=== PATIENT | male | born 1955 | race Two or more races ===

== ENCOUNTER 2020-11-21 12:04 | Emergency (ER) | payer OTHER ==
[~2020-11-21] VITALS: Ht 175.3 cm; Wt 83.9 kg
[~2020-11-21 12:04] MED LIST: DILT180C68 PO
[2020-11-21 12:59] LABS: Basophils # (auto) 0 10 ^3/uL (0-0.2); Eosinophils # (auto) 0 10 ^3/uL (0-0.8); Hematocrit 41.3 % (41.0-53.0); Hemoglobin 14.4 g/dL (13.5-17.5); Lymphocytes # (auto) 0.7 10 ^3/uL (0.4-5.4); Lymphocytes % (auto) 4.3 % (10.0-50.0); Mean Corpuscular Hemoglobin 30.5 pg (28.0-32.0); Mean Corpuscular Hgb Conc. 34.7 g/dL (32.0-36.0); Mean Corpuscular Volume 87.7 fL (80.0-100.0); Monocytes # (auto) 0.6 10 ^3/uL (0-1.3); Monocytes % (auto) 3.6 % (0.0-12.0); Neutrophils % (auto) 92.1 % (37.0-80.0); Platelet Count (auto) 271 10^3/uL (140-450); Red Blood Cells 4.71 10^6/uL (4.5-5.90); Red Cell Distribution Width 12.9 % (11.8-14.3); White Blood Cell 15.2 10^3/uL (4.4-10.8)
[2020-11-21 13:14] LABS: Chloride 105 mmol/L (98-107); Sodium 134 mmol/L (136-145)
[2020-11-21 13:25] LABS: Alanine Aminotransferase 24 U/L (16-61); Albumin 2.4 g/dL (3.4-5.0); Alkaline Phosphatase 92 U/L (45-117); Anion Gap 9 (5-15); Aspartate Aminotransferase 17 U/L (15-37); BUN/Creatinine Ratio 22.6; Bilirubin, Total 0.6 mg/dL (0.2-1.0); Blood Urea Nitrogen 21 mg/dL (7-18); Calcium 8.3 mg/dL (8.5-10.1); Carbon Dioxide 20 mmol/L (21-32); GFR African American 105 mL/min; GFR Non-African American 87 mL/min; Glucose 234 mg/dL (74-106); Magnesium 2.2 mg/dL (1.6-2.6)
[2020-11-21] MEDS ORDERED: dilTIAZem 120MG ER CAP PO ONE ×2 (15:45→16:15)
[2020-11-21 16:30] VITALS: BP 121/73
== END 2020-11-21 16:55 | disposition home or self-care (01) ==
LOC: ER 12:04 → EDBD 12:04 → ER 16:55
DX: I47.1 Supraventricular tachycardia (principal); E11.9 Type 2 diabetes mellitus without complications
CPT/HCPCS: 36415; 71045; 80053; 83735; 83880; 84484; 85025; 93005

== ENCOUNTER 2024-04-29 11:02 | Inpatient (IN) | payer OTHER ==
[~2024-04-29] VITALS: Ht 172.7 cm; Wt 78.1 kg
[2024-04-29 11:59] LABS: Chloride 102 mmol/L (98-107); Potassium 4.9 mmol/L (3.5-5.1); Sodium 134 mmol/L (136-145)
[2024-04-29 12:00] LABS: Anion Gap 7 (5-15); Calcium 10.3 mg/dL (8.5-10.1); Carbon Dioxide 25 mmol/L (20-30)
[2024-04-29 12:05] LABS: BUN/Creatinine Ratio 16.5 (10.0-20.0); Blood Urea Nitrogen 22 mg/dL (9-23); Glucose 252 mg/dL (74-106)
[2024-04-29 12:07] LABS: Eosinophils # (auto) 0.2 10 ^3/uL (0-0.8); Hemoglobin 18.5 g/dL (13.5-17.5); Monocytes # (auto) 0.5 10 ^3/uL (0-1.3)
[2024-04-29 12:09] LABS: Basophils # (auto) 0.1 10 ^3/uL (0-0.2); Eosinophils % (auto) 2.4 % (0.0-7.0); Hematocrit 53.6 % (41.0-53.0); Lymphocytes # (auto) 2.1 10 ^3/uL (0.4-5.4); Lymphocytes % (auto) 26.5 % (10.0-50.0); Mean Corpuscular Hemoglobin 29.9 pg (28.0-32.0); Mean Corpuscular Hgb Conc. 34.5 g/dL (32.0-36.0); Mean Corpuscular Volume 86.8 fL (80.0-100.0); Monocytes % (auto) 6.9 % (0.0-12.0); Neutrophils % (auto) 63.2 % (37.0-80.0); Nucleated Red Blood Cells % 0.2 %; Red Blood Cells 6.18 10^6/uL (4.5-5.90); White Blood Cell 7.8 10^3/uL (4.4-10.8)
[2024-04-29 12:43] VITALS: PULSE 80; RESP 16; O2SAT 96
[2024-04-29] MEDS: SODIUM CHLORIDE 0.9% 1,000 ML IV ONE (12:54)
[2024-04-29] MEDS ORDERED: ONDANSETRON HCL 4 MG/2 ML VIAL IV PRN (14:45)
[2024-04-29] MEDS ORDERED: MORPHINE SULFATE INJ 2 MG/ml SYRG IV PRN (14:45)
[2024-04-29] MEDS ORDERED: DEXTROSE (50%) 50ML SYRG IV PRN (14:45)
[2024-04-29] MEDS ORDERED: NITROGLYCERIN 0.4 MG SL TAB SL PRN (14:45)
[2024-04-29 15:26] LABS: Triglycerides 194 mg/dL (< 150)
[2024-04-29 15:27] LABS: LDL Cholesterol 72 mg/dL (< 100)
[2024-04-29 15:28] LABS: Cholesterol 131 mg/dL (< 200); HDL Cholesterol 41 mg/dL (40-59)
[2024-04-29 15:52] LABS: INR 1.01 (0.9-1.15); Partial Thromboplastin Time 25.9 SEC (24.5-34.5); Prothrombin Time 10.7 sec (9.3-11.8)
[2024-04-29 16:12] LABS: Urine Bacteria FEW /hpf (None Seen); Urine Blood Negative /uL (Negative); Urine Clarity Clear (Clear); Urine Color Light-Yellow (Yellow); Urine Protein, UAD Negative (Negative); Urine Specific Gravity 1.018 (1.001-1.035); Urine Urobilinogen Normal (Negative); Urine WBC <1 /hpf (0 - 3)
[2024-04-29 16:14] LABS: Amphetamine Screen, Urine Neg (NEGATIVE); Barbiturate Scree,Urine Neg (NEGATIVE); Benzodiazephine Screen, Urine Neg (NEGATIVE); Cannabinoid Screen, Urine Neg (NEGATIVE); Cocaine Screen, Urine Neg (NEGATIVE); Opiate Scree,Urine Neg (NEGATIVE); Phencyclidine Screen, Urine Neg (NEGATIVE)
[2024-04-29] MEDS: InsuLIN REG 1unit/0.01ml Soln (100units/ml) SC SCH (17:00)
[2024-04-29] MEDS: ACCU-CHEK COMFORT CURVE STRIP VI SCH (17:00)
[2024-04-29] MEDS: SODIUM CHLORIDE 0.9% 1,000 ML IV SCH (18:04)
[2024-04-29 19:30] VITALS: PULSE 96; RESP 16; O2SAT 96
[2024-04-29 21:00] VITALS: BP_SYST 131; BP_SYST 134; BP_DIAS 74; BP_DIAS 76; PULSE 78; PULSE 81; RESP 18; TEMP 98.1; O2SAT 95
[2024-04-29 22:17] VITALS: BP 131/76; PULSE 81; RESP 18; TEMP 98.1; O2SAT 95
[2024-04-30] VITALS (8 sets, daily range): BP systolic 116–143; BP diastolic 66–87; PULSE 65–113; RESP 16–20; TEMP 97.5–98.4; O2SAT 91–97
[2024-04-30] MEDS ORDERED: METF-372 PO (01:49)
[2024-04-30] MEDS ORDERED: ROSU10TA64 PO (01:49)
[2024-04-30 06:31] LABS: Basophils # (auto) 0.1 10 ^3/uL (0-0.2); Basophils % (auto) 0.9 % (0.0-2.0); Eosinophils # (auto) 0.2 10 ^3/uL (0-0.8); Eosinophils % (auto) 3.3 % (0.0-7.0); Hematocrit 49.7 % (41.0-53.0); Hemoglobin 16.6 g/dL (13.5-17.5); Lymphocytes # (auto) 2.4 10 ^3/uL (0.4-5.4); Lymphocytes % (auto) 37.5 % (10.0-50.0); Mean Corpuscular Hemoglobin 29.2 pg (28.0-32.0); Mean Corpuscular Hgb Conc. 33.4 g/dL (32.0-36.0); Mean Corpuscular Volume 87.3 fL (80.0-100.0); Monocytes # (auto) 0.5 10 ^3/uL (0-1.3); Monocytes % (auto) 7.6 % (0.0-12.0); Neutrophils # (auto) 3.3 10 ^3/uL (1.6-8.6); Neutrophils % (auto) 50.7 % (37.0-80.0); Nucleated Red Blood Cells % 0.2 %; Red Cell Distribution Width 14.2 % (11.8-14.3); White Blood Cell 6.5 10^3/uL (4.4-10.8)
[2024-04-30 06:48] LABS: Alanine Aminotransferase 22 U/L (7-40); Alkaline Phosphatase 64 U/L (46-116); Anion Gap 8 (5-15); Aspartate Aminotransferase < 8 U/L (13-40); BUN/Creatinine Ratio 18.2 (10.0-20.0); Blood Urea Nitrogen 18 mg/dL (9-23); Calcium 9.1 mg/dL (8.5-10.1); Carbon Dioxide 23 mmol/L (20-30); Chloride 107 mmol/L (98-107); Potassium 3.9 mmol/L (3.5-5.1); Sodium 138 mmol/L (136-145)
[2024-04-30 06:49] LABS: Glucose 146 mg/dL (74-106); Total Protein 5.8 g/dL (5.7-8.2)
[2024-04-30] MEDS: FAMOTIDINE 20 MG TAB PO SCH (09:39)
[2024-04-30] MEDS: ENOXAPARIN SOD 40 MG/0.4 ML SYRINGE SC SCH (09:40)
[2024-05-01] VITALS (8 sets, daily range): BP systolic 108–141; BP diastolic 73–90; PULSE 69–88; RESP 14–18; TEMP 97.6–98.3; O2SAT 93–98
[2024-05-01] MEDS: ADENOSINE 64 MG in GIVE UN-DILUTED 0 ML IV ONE (10:31)
[2024-05-02 04:52] VITALS: BP 108/54; PULSE 94; RESP 16; TEMP 97.6; O2SAT 95
[2024-05-02 08:00] VITALS: PULSE 79
[2024-05-02 08:47] VITALS: BP 103/58; PULSE 89; RESP 22; TEMP 98.1; O2SAT 99
[2024-05-02 12:34] VITALS: BP 106/61; PULSE 93; RESP 20; TEMP 97.8; O2SAT 94
[2024-05-02 15:43] VITALS: TEMP 36.6
== END 2024-05-02 16:40 | disposition home health service (06) | DRG 310 ==
LOC: ER 11:02 → TELE 14:41 → TELE-E-ADS 20:55
PROVIDERS: ADMIT Hospitalist; ATTEND Internal Medicine
DX: I49.5 Sick sinus syndrome (principal); I10 Essential (primary) hypertension; E11.9 Type 2 diabetes mellitus without complications; E78.5 Hyperlipidemia, unspecified; Z83.3 Family history of diabetes mellitus; Z82.49 Family history of ischemic heart disease and other diseases of the circulatory system; Z79.899 Other long term (current) drug therapy; Z79.4 Long term (current) use of insulin
CPT/HCPCS: 36415; 70450; 70551; 78452; 80048; 80053; 80061; 80307; 81001; 82962; 83036; 84484; 85025; 85379; 85610; 85730; 93005; 93017; 93306; 97110; 97116; 97163; 97530; G0378; J0153; J1815

== ENCOUNTER 2024-06-13 01:47 | Inpatient (IN) | payer OTHER ==
[2024-06-13] VITALS (7 sets, daily range): BP systolic 137; BP diastolic 82; PULSE 68–84; RESP 14–19; TEMP 97.7; O2SAT 94–96
[~2024-06-13] VITALS: Ht 180.3 cm; Wt 83.1 kg
[~2024-06-13 01:47] MED LIST changes: +METF-372 PO; +ROSU10TA64 PO
[2024-06-13 02:28] LABS: Basophils # (auto) 0 10 ^3/uL (0-0.2); Basophils % (auto) 0.3 % (0.0-2.0); Eosinophils # (auto) 0.1 10 ^3/uL (0-0.8); Eosinophils % (auto) 1.1 % (0.0-7.0); Hematocrit 50.5 % (41.0-53.0); Hemoglobin 17.2 g/dL (13.5-17.5); Lymphocytes # (auto) 1.9 10 ^3/uL (0.4-5.4); Lymphocytes % (auto) 24.9 % (10.0-50.0); Mean Corpuscular Hemoglobin 30.5 pg (28.0-32.0); Mean Corpuscular Hgb Conc. 34.1 g/dL (32.0-36.0); Mean Corpuscular Volume 89.5 fL (80.0-100.0); Monocytes # (auto) 0.6 10 ^3/uL (0-1.3); Monocytes % (auto) 7.7 % (0.0-12.0); Neutrophils # (auto) 4.9 10 ^3/uL (1.6-8.6); Red Blood Cells 5.65 10^6/uL (4.5-5.90); Red Cell Distribution Width 15.1 % (11.8-14.3); White Blood Cell 7.4 10^3/uL (4.4-10.8)
[2024-06-13 02:38] LABS: Alanine Aminotransferase 23 U/L (7-40); Albumin 4.2 g/dL (3.2-4.8); Alkaline Phosphatase 76 U/L (46-116); Anion Gap 11 (5-15); Aspartate Aminotransferase < 8 U/L (13-40); BUN/Creatinine Ratio 13.7 (10.0-20.0); Bilirubin, Total 0.8 mg/dL (0.2-1.0); Blood Urea Nitrogen 16 mg/dL (9-23); Carbon Dioxide 21 mmol/L (20-30); Chloride 108 mmol/L (98-107); Glucose 162 mg/dL (74-106); Magnesium 1.9 mg/dL (1.6-2.6); Potassium 3.9 mmol/L (3.5-5.1); Sodium 140 mmol/L (136-145)
[2024-06-13 02:39] LABS: Total Protein 6.3 g/dL (5.7-8.2)
[2024-06-13 02:45] LABS: INR 0.91 (0.9-1.15); Partial Thromboplastin Time 27.4 SEC (24.5-34.5); Prothrombin Time 9.7 sec (9.3-11.8)
[2024-06-13] MEDS ORDERED: HYDROcodone-ACET 5/325MG TAB PO PRN (06:00)
[2024-06-13] MEDS ORDERED: NITROGLYCERIN 0.4 MG SL TAB SL PRN (06:00)
[2024-06-13] MEDS ORDERED: ONDANSETRON HCL 4 MG/2 ML VIAL IV PRN (06:00)
[2024-06-13] MEDS ORDERED: DEXTROSE (50%) 50ML SYRG IV PRN (06:00)
[2024-06-13] MEDS ORDERED: MORPHINE SULFATE INJ 2 MG/ml SYRG IV PRN ×2 (06:00)
[2024-06-13] MEDS ORDERED: ACETAMINOPHEN 325 MG TAB PO PRN (06:00)
[2024-06-13] MEDS: ASPirin 81 mg TAB PO ONE (06:03)
[2024-06-13] MEDS: ACCU-CHEK COMFORT CURVE STRIP VI SCH (06:30)
[2024-06-13] MEDS: InsuLIN REG 1unit/0.01ml Soln (100units/ml) SC SCH (06:31)
[2024-06-13] MEDS: SODIUM CHLORIDE 0.9% 1,000 ML IV ONE (07:29)
[2024-06-13] MEDS: ADENOSINE 6 MG/2 ML INJ IV ONE ×2 (07:29→17:29)
[2024-06-13 07:40] LABS: Urine Bacteria None Seen /hpf (None Seen)
[2024-06-13 07:57] LABS: Urine Blood Negative /uL (Negative); Urine Clarity Clear (Clear); Urine Color Light-Yellow (Yellow); Urine Protein, UAD Negative (Negative); Urine Specific Gravity 1.022 (1.001-1.035); Urine Urobilinogen Normal (Negative); Urine WBC <1 /hpf (0 - 3)
[2024-06-13] MEDS: ASPirin 81 mg TAB PO SCH (10:28)
[2024-06-13] MEDS: ATORVASTATIN 20 MG TAB PO SCH (10:28)
[2024-06-13] MEDS: ENOXAPARIN SOD 100 MG/1 ML SYRINGE SC SCH (10:29)
[2024-06-13] MEDS: dilTIAZem 25 MG/5 ML VIAL IV ONE ×4 (17:19→20:51)
[2024-06-13] MEDS ORDERED: FLECAINIDE ACETATE 50 MG TAB PO ONE (17:30)
[2024-06-13] MEDS: FLECAINIDE ACETATE 50 MG TAB PO SCH (18:23)
[2024-06-13] MEDS: dilTIAZem 125mg/125ml BAG KIT 125 ML IV SCH (20:21)
[2024-06-13] MEDS ORDERED: FLECAINIDE ACETATE 50 MG TAB PO SCH (22:00)
[2024-06-14] VITALS (23 sets, daily range): BP systolic 126–166; BP diastolic 73–95; PULSE 59–84; RESP 11–18; TEMP 97.6–98.6; O2SAT 88–99
[2024-06-14] MEDS: DIGOXIN 0.125 MG TAB PO ONE ×2 (02:39→11:47)
[2024-06-14 05:48] LABS: Basophils # (auto) 0 10 ^3/uL (0-0.2); Basophils % (auto) 0.5 % (0.0-2.0); Eosinophils # (auto) 0.1 10 ^3/uL (0-0.8); Eosinophils % (auto) 1.8 % (0.0-7.0); Hematocrit 50.9 % (41.0-53.0); Hemoglobin 17.1 g/dL (13.5-17.5); Lymphocytes # (auto) 2.4 10 ^3/uL (0.4-5.4); Lymphocytes % (auto) 30.7 % (10.0-50.0); Mean Corpuscular Hemoglobin 30.3 pg (28.0-32.0); Mean Corpuscular Hgb Conc. 33.6 g/dL (32.0-36.0); Mean Corpuscular Volume 90.2 fL (80.0-100.0); Monocytes # (auto) 0.5 10 ^3/uL (0-1.3); Neutrophils # (auto) 4.7 10 ^3/uL (1.6-8.6); Red Blood Cells 5.64 10^6/uL (4.5-5.90); Red Cell Distribution Width 15.1 % (11.8-14.3); White Blood Cell 7.8 10^3/uL (4.4-10.8)
[2024-06-14 06:10] LABS: Anion Gap 7 (5-15); Calcium 9.1 mg/dL (8.7-10.4); Carbon Dioxide 25 mmol/L (20-30); Chloride 108 mmol/L (98-107); Potassium 3.8 mmol/L (3.5-5.1); Sodium 140 mmol/L (136-145)
[2024-06-14 06:16] LABS: BUN/Creatinine Ratio 16.9 (10.0-20.0); Blood Urea Nitrogen 14 mg/dL (9-23); Glucose 114 mg/dL (74-106)
[2024-06-14] MEDS: dilTIAZem 120MG ER CAP PO ONE (11:38)
[2024-06-14] MEDS: DIGOXIN 0.125 MG TAB PO SCH (11:39)
[2024-06-14] MEDS ORDERED: ATOR10TA52 PO (17:30)
[2024-06-14] MEDS ORDERED: GLIP10TA9 PO (17:30)
[2024-06-14] MEDS ORDERED: EMPA1TAB3 PO (17:30)
[2024-06-14] MEDS ORDERED: MELO15TA29 PO (17:30)
[2024-06-14] MEDS ORDERED: CHOL20007 PO (17:30)
[2024-06-14] MEDS ORDERED: CHOL500046 PO (17:30)
[2024-06-15] VITALS (8 sets, daily range): BP systolic 111–136; BP diastolic 63–93; PULSE 74–87; RESP 16–18; TEMP 98.2–98.7; O2SAT 90–97
[2024-06-15 07:11] LABS: Basophils # (auto) 0 10 ^3/uL (0-0.2); Basophils % (auto) 0.6 % (0.0-2.0); Eosinophils # (auto) 0.1 10 ^3/uL (0-0.8); Lymphocytes # (auto) 1.8 10 ^3/uL (0.4-5.4); Mean Corpuscular Hgb Conc. 33.6 g/dL (32.0-36.0); Monocytes # (auto) 0.6 10 ^3/uL (0-1.3); Neutrophils # (auto) 3.6 10 ^3/uL (1.6-8.6); White Blood Cell 6.2 10^3/uL (4.4-10.8)
[2024-06-15 07:13] LABS: Hematocrit 53.2 % (41.0-53.0); Hemoglobin 17.9 g/dL (13.5-17.5); Lymphocytes % (auto) 29.3 % (10.0-50.0); Mean Corpuscular Hemoglobin 30.1 pg (28.0-32.0); Mean Corpuscular Volume 89.6 fL (80.0-100.0); Monocytes % (auto) 9.8 % (0.0-12.0); Neutrophils % (auto) 58.3 % (37.0-80.0); Nucleated Red Blood Cells % 0.3 %; Red Blood Cells 5.93 10^6/uL (4.5-5.90); Red Cell Distribution Width 14.8 % (11.8-14.3)
[2024-06-15 07:20] LABS: Chloride 106 mmol/L (98-107); Potassium 3.7 mmol/L (3.5-5.1); Sodium 138 mmol/L (136-145)
[2024-06-15 07:21] LABS: Anion Gap 8 (5-15); Calcium 9.4 mg/dL (8.7-10.4); Carbon Dioxide 24 mmol/L (20-30)
[2024-06-15 07:26] LABS: BUN/Creatinine Ratio 16.3 (10.0-20.0); Blood Urea Nitrogen 15 mg/dL (9-23); Glucose 125 mg/dL (74-106)
[2024-06-15] MEDS: dilTIAZem 120MG ER CAP PO SCH (09:35)
[2024-06-15] MEDS ORDERED: DIGO1TAB48 PO (14:54)
[2024-06-15] MEDS ORDERED: FLE50T PO (14:54)
== END 2024-06-15 15:49 | disposition home or self-care (01) | DRG 189 ==
LOC: ER 01:47 → TELE 06:03 → DOU IN ICU 22:39 → TELE-CENTR 06-14 22:55
PROVIDERS: ADMIT Nurse Practitioner Family; ATTEND Nurse Practitioner Family
DX: J96.01 Acute respiratory failure with hypoxia (principal); I47.19 Other supraventricular tachycardia; E11.9 Type 2 diabetes mellitus without complications; E78.5 Hyperlipidemia, unspecified; I10 Essential (primary) hypertension; Z79.82 Long term (current) use of aspirin; Z79.4 Long term (current) use of insulin; Z79.899 Other long term (current) drug therapy
CPT/HCPCS: 36415; 71045; 80048; 80053; 81001; 82962; 83735; 83880; 84484; 85025; 85610; 85730; 87081; 93005; 97110; 97116; 97163; 97530; G0378; J0153; J1815